=== PATIENT | female | born 1975 | race Caucasian/White ===

== ENCOUNTER → 2017-11-06 | Outpatient (CLI) | payer OTHER ==
[~2017-11-06] MED LIST: FEXO1TAB46 PO; MULT-506 PO
--- NOTE | 2017-11-06 18:06 | DIAGNOSTIC IMAGING REPORT ---
L KNEE 4 OR MORE VIEWS CLINICAL HISTORY: Left knee calf pain COMPARISON: None. DISCUSSION: No fractures or dislocations are visualized. There is no radiographic evidence of significant joint effusion. No destructive lesions are evident. IMPRESSION: No significant bony abnormalities Electronically signed by: Robin Caal M.D. 11/06/2017 6:04 PM Dictated Date/Time: 11/06/2017 6:04 PM
--- NOTE | 2017-11-06 18:18 | DIAGNOSTIC IMAGING REPORT ---
ULTRASOUND L VENOUS DOPP LOWER EXT UNILAT CLINICAL HISTORY: PAIN IN LEFT CALF, LEFT KNEE PAIN COMPARISON STUDY: No previous studies for comparison. FINDINGS: Real-time and color flow Doppler imaging were performed. Flow was seen within the femoral, popliteal and calf veins with no intraluminal thrombus demonstrated. The saphenous vein is patent. IMPRESSION: No evidence of left lower extremity DVT. Electronically signed by: Robin Caal M.D. 11/06/2017 6:17 PM Dictated Date/Time: 11/06/2017 6:17 PM
== END | disposition home or self-care (01) ==
LOC: C.ULTR 17:35
PROVIDERS: ATTEND Family Medicine
DX: M79.662 Pain in left lower leg (principal); M25.562 Pain in left knee